=== PATIENT | male | born 1985 | race African-American/Black ===

== ENCOUNTER 2018-07-06 00:01 | Emergency (ER) | payer OTHER ==
[~2018-07-06] VITALS: Ht 177.8 cm; Wt 79.4 kg
[~2018-07-06 00:01] MED LIST: BENTYL20 MG PO; NAPROSYN500 MG PO; NYQUIL D COLD295 ML; PHENERGAN 25 MG25 M1 PO; ZOFRAN4 MG PO
[2018-07-06] MEDS ORDERED: ZOLOFT50 MG PO (00:10)
[2018-07-06 00:37] LABS: ABSOLUTE BASOPHILS 0.1 thou/uL (0.0-0.2); ABSOLUTE LYMPHOCYTES 0.8 thou/uL (0.8-5.3); ABSOLUTE MONOCYTES 0.3 thou/uL (0.0-1.2); ABSOLUTE NEUTROPHILS 15.1 thou/uL (1.6-8.1); BASOPHILS 0.3 %; EOSINOPHILS 0.2 %; HEMATOCRIT 49.3 % (42.0-52.0); HEMOGLOBIN 16.9 gm/dL (14.0-18.0); MCH 29.9 pg (26.0-34.0); MCHC 34.3 g/dL (28.0-37.0); MCV 87.3 fL (80.0-100.0); MONOCYTES 1.9 %; MPV 8.4 fl. (7.2-11.1); NUCLEATED RBCS 0 /100WBC; PLATELET COUNT* 212 thou/uL (150-400); POLYS 92.6 %; RBC 5.64 mil/uL (4.50-6.00); RDW-CV 13.4 % (10.5-14.5); WBC 16.3 thou/uL (4.0-11.0)
[2018-07-06 00:49] LABS: CALCIUM 9.9 mg/dL (8.5-10.1)
[2018-07-06 00:54] LABS: ALBUMIN 4.4 g/dL (3.4-5.0); TOTAL BILIRUBIN 0.7 mg/dL (<0.1-1.0); TOTAL PROTEIN 7.6 g/dL (6.4-8.2)
[2018-07-06] MEDS ORDERED: ZOFRAN ODT4 MG SUBLING (01:04)
[2018-07-06 01:30] VITALS: BP 146/79
== END 2018-07-06 01:30 | disposition home or self-care (01) ==
LOC: M.ERS 00:01
PROVIDERS: Family Medicine
DX: R11.2 Nausea with vomiting, unspecified (principal); R19.7 Diarrhea, unspecified; F17.210 Nicotine dependence, cigarettes, uncomplicated

== ENCOUNTER 2019-05-09 18:40 | Emergency (ER) | payer OTHER, MEDICAID ==
[~2019-05-09] VITALS: Ht 180.3 cm; Wt 69.4 kg
[~2019-05-09 18:40] MED LIST changes: +ZOFRAN ODT4 MG SUBLING; +ZOLOFT50 MG PO
[2019-05-09] MEDS ORDERED: NAPROSYN500 M1 PO (19:04)
[2019-05-09 19:42] LABS: HEMATOCRIT 46.5 % (42.0-52.0); HEMOGLOBIN 16.1 gm/dL (14.0-18.0); MCH 30.3 pg (26.0-34.0); MCHC 34.6 g/dL (28.0-37.0); MCV 87.6 fL (80.0-100.0); MPV 8.1 fl. (7.2-11.1); NUCLEATED RBCS 0 /100WBC; PLATELET COUNT* 187 thou/uL (150-400); RBC 5.31 mil/uL (4.50-6.00); RDW-CV 13.6 % (10.5-14.5); WBC 15.6 thou/uL (4.0-11.0)
[2019-05-09 19:56] LABS: CALCIUM 8.7 mg/dL (8.5-10.1); POTASSIUM 3.5 mmol/L (3.5-5.1)
[2019-05-09 20:00] LABS: ALBUMIN 4.1 g/dL (3.4-5.0); TOTAL BILIRUBIN 0.5 mg/dL (<0.1-1.0); TOTAL PROTEIN 7.2 g/dL (6.4-8.2)
[2019-05-09 20:18] LABS: ABSOLUTE LYMPHOCYTES 1.1 thou/uL (0.8-5.3); ABSOLUTE MONOCYTES 0.5 thou/uL (0.0-1.2); PLATELET ESTIMATE ADEQUATE
[2019-05-09] MEDS ORDERED: PHENERGAN 25 MG25 M1 PO (20:28)
[2019-05-09] MEDS ORDERED: ATIVAN1 M1 PO (20:28)
[2019-05-09 22:20] VITALS: BP 114/57
== END 2019-05-09 22:21 | disposition home or self-care (01) ==
LOC: M.ERS 18:40
PROVIDERS: Personal Emergency Response Attendant
DX: R11.2 Nausea with vomiting, unspecified (principal); F17.210 Nicotine dependence, cigarettes, uncomplicated

== ENCOUNTER 2021-04-11 16:39 | Emergency (ER) | payer OTHER, MEDICAID ==
[~2021-04-11] VITALS: Ht 180.3 cm; Wt 84.8 kg
[~2021-04-11 16:39] MED LIST changes: +ATIVAN1 M1 PO; +NAPROSYN500 M1 PO
[2021-04-11] MEDS ORDERED: HYDROCODON-ACE1 EAC7 PO (17:43)
[2021-04-11 18:20] VITALS: BP 125/85
== END 2021-04-11 18:21 | disposition home or self-care (01) ==
LOC: M.ERS 16:39
DX: M25.561 Pain in right knee (principal); F17.210 Nicotine dependence, cigarettes, uncomplicated; X50.1XXA Overexertion from prolonged static or awkward postures, initial encounter; Y93.89 Activity, other specified; Y92.89 Other specified places as the place of occurrence of the external cause; Y99.8 Other external cause status